=== PATIENT | male | born 1965 | race Caucasian/White ===

== ENCOUNTER 2021-05-07 10:15 | Emergency (ER) | payer OTHER, SELFPAY ==
[2021-05-07 10:31] VITALS: BP 137/97; PULSE 89; RESP 19; TEMP 36.6; O2SAT 99; BMI 27.8
--- NOTE | 2021-05-07 11:09 | ED.GENADULT ---
HPI - General Adult General Chief complaint: General Medical Stated complaint: rectal bleeding Time Seen by Provider: 05/07/21 11:07 Source: patient Mode of arrival: ambulatory Limitations: no limitations History of Present Illness HPI narrative: 56-year-old male no known medical history presents to the emergency department with constipation x3 days, in streaks of blood per rectum. Patient tells me that he is under a lot of stress, the past 3 days he has been constipated, yesterday he decided to do a manual disimpaction on himself and ever since then he has noted streaks of blood in the toilet bowl. He tells me he feels like he scratched his rectum, and it stings. He tells me he bought an [id number] stool softener, which has been helping a little bit. He usually has 3 bowel movements per day, but now he is having 1 bowel movement per day. He tells me he is not having associated abdominal pain, nausea or vomiting. He denies fevers, chills, chest pain, shortness of breath. He is not on blood thinners. Onset (ago): day(s) (3) Location: genitals (rectum ) Radiation: non-radiation Severity: mild Quality: burning and other (stinging ) Pain Consistency: constant Relieving factors: none Exacerbating factors: none Associated symptoms: denies other symptoms Treatments prior to arrival: none Related Data Previous Rx's Medication Instructions Recorded docusate sodium 100 mg capsule 100 mg PO BID #20 cap 05/07/21 (Colace) polyethylene glycol 3350 17 17 g PO BID PRN #238 g 05/07/21 gram/dose oral powder (Miralax) sennosides 8.6 mg tablet (senna) 8.6 mg PO BEDTIME PRN #14 tab 05/07/21 Allergies Allergy/AdvReac Type Severity Reaction Status Date / Time No Known Allergies Allergy Verified 05/07/21 11:18 Review of Systems Review of Systems: Constitutional : No Weight loss, No Fever, No Chills, No Fatigue, No Malaise ENT/Mouth : No sore throat, No Rhinorrhea Eyes: No Eye Pain, No Swelling, No Redness Cardiovascular : No Chest Pain, No SOB, No Dyspnea on Exertion, No Orthopnea, No Edema, No Palpitations Respiratory : No Cough, No Sputum, No Wheezing Gastrointestinal : No Nausea, No Vomiting, No Diarrhea, + Constipation, No abdominal Pain, + Hematochezia, No Melena Genitourinary : No Dysuria, No Urinary Frequency, No Hematuria, Musculoskeletal : No joint pain, No Myalgias, No Joint Swelling Skin : No Skin Lesions, No rash Neuro : No Weakness, No Numbness, No Dizziness, No Headache All other systems reviewed and are negative [facility] Past Medical History Attestation statement: The following information was validated with the patient. Source: old records reviewed and nursing notes reviewed Social History Social History Advance Directives: No Physical Exam Vital Signs: Vital Signs: Last Vital Signs Temp 98 F 05/07/21 10:31 Pulse 77 05/07/21 13:59 Resp 18 05/07/21 13:59 BP 135/95 H 05/07/21 13:59 Pulse Ox 95 05/07/21 13:59 Body Mass Index 27.8 VSS Appearance: Alert.? Oriented X3.? No acute distress.? Head: Normocephalic, atraumatic, no step-offs or deformities Eyes: Pupils equal, round and reactive to light.? ENT: Pharynx normal.? Neck: Normal inspection.? Neck supple.? CVS: Normal heart rate and rhythm.? Pulses normal.? Respiratory: No respiratory distress.? Breath sounds normal.? Abdomen: Soft and nontender.? Rectal: +Hard stool in rectal vault, normal anal tone, no hemorrhoids noted, +small scratch noted to rectum Skin: Skin warm and dry.? Normal skin color.? Normal skin turgor.? Extremities: No lower extremity edema.? No calf ttp. 5/5 strength to bilateral upper and lower extremities Back: No midline tenderness, no C-spine tenderness, full range of motion, no CVA tenderness bilaterally Neuro: Oriented X 3.? No motor deficit.? No sensory deficit. Course Reevaluation(s) Reevaluation #1: OBSx1 neagtive. Fleet enema given. KUB pending. 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 Patient will be DC home on a bowel regimen. He has been advised return to the emergency department with new or worsening symptoms. He should follow-up with his PCP. Time: 13:40 Procedures Rectal Disimpaction Time out performed rectal disimpaction: Yes Indication: fecal impaction Procedural Sedation: No Sedation/Analgesia: none Technique: manual disimpaction with gloved finger Result: significant stool output Patient Tolerated Procedure: well Complications: none Medical Decision Making MDM Narrative Medical decision making narrative: 1112 56 yo M no pmhx presents to the ED w/ concerns of constipation X3 days. Reports increased stress lately Upon physical examination patient appears well, he is in no acute distress. Vital signs are stable. S1-S2 appreciated free of murmurs. Lungs are clear. Abdomen soft nontender nondistended. Upon rectal examination patient has a good rectal tone, no external hemorrhoids noted, there is a small scrape noted to the rectum, upon exam there is hard stool noted in the rectal vault. Normal strength. No focal neuro deficits. Plan- KUB, OBSX1 and fleet enema. Lab Data Labs: Lab Results 05/07/21 Range/Units 11:23 Stool Occult Blood NEGATIVE (NEGATIVE) Critical Care Time Critical Care Time Critical Care Time: No Discharge Plan Discharge Clinical Impression: Constipation Qualifiers: Constipation type: slow transit constipation Qualified Code(s): K59.01 - Slow transit constipation Patient Disposition: Home, Self-Care Instructions: Constipation (ED), Fleet Enema (ED) Additional Instructions: Take your medications as prescribed. Return if you are still constipated in 2-3 days Follow-up with your primary care provider this week. Return to the emergency department with new or worsening symptoms. In case of emergency call 911 Prescriptions: New polyethylene glycol 3350 [Miralax] 17 gram/dose powder 17 g PO BID PRN (Reason: constipation) Qty: 238 RF: 0 sennosides [senna] 8.6 mg tablet 8.6 mg PO BEDTIME PRN (Reason: constipation) Qty: 14 RF: 0 docusate sodium [Colace] 100 mg capsule 100 mg PO BID Qty: 20 RF: 0 Referrals: Moises Yuan MD [Primary Care Provider] - 2 days Interventions: ED Discharge Assessment Last Done: 05/07/21 13:58 Discharge Date/Time: 05/07/21 14:09
[2021-05-07 11:30] LABS: OBS Int Ctl Valid YES; OBS1 NEGATIVE (NEGATIVE)
[2021-05-07] MEDS: Sodium Phosphate,Mono-Dibasic 133 ML ENEMA PR (12:23)
[2021-05-07 13:59] VITALS: BP 135/95; PULSE 77; RESP 18; O2SAT 95
== END 2021-05-07 13:58 | disposition home or self-care (01) ==
PROVIDERS: Physician Assistant; Emergency Provider Emergency Medicine; PCP Internal Medicine
DX: K59.01 Slow transit constipation (principal); K62.5 Hemorrhage of anus and rectum
CPT/HCPCS: 74018; 82272; 99284